=== PATIENT | female | born 1995 | race Asian ===

== ENCOUNTER 2018-05-09 18:46 | Emergency (ER) | payer OTHER ==
[~2018-05-09] VITALS: Ht 160 cm; Wt 85.3 kg
[2018-05-09 20:26] VITALS: BP 174/89; TEMP 97.9
== END 2018-05-09 20:29 | disposition home or self-care (01) ==
LOC: ED 18:46
DX: R07.89 Other chest pain (principal); V49.40XA Driver injured in collision with unspecified motor vehicles in traffic accident, initial encounter; Y92.89 Other specified places as the place of occurrence of the external cause
CPT/HCPCS: 99282; 99283